=== PATIENT | female | born 1945 | race Caucasian/White ===

== ENCOUNTER 2016-09-15 06:15 | Inpatient (IN) | payer OTHER ==
[~2016-09-15] VITALS: Ht 160 cm; Wt 99.8 kg
[~2016-09-15 06:15] MED LIST: CARV12.548 PO; FURO-149 PO; INSU100V32 SUBCUT; ISOS20TA8 PO; NORT25CA30 PO; POTA-118 PO; SIMV40TA2 PO; [UNRECOGNIZED DRUG - CODE]
[2016-09-15] MEDS ORDERED: LOSA50TA3 PO (07:49)
[2016-09-15] MEDS ORDERED: INSU100V32 SUBCUT (07:49)
[2016-09-15] MEDS ORDERED: NPH,100V SUBCUT (07:49)
[2016-09-15] MEDS ORDERED: METOPROLOL TARTRATE 5 MG/5 ML VIAL IVP ONE (08:01)
[2016-09-15] MEDS ORDERED: VANCOMYCIN HCL 1000 MG/VIAL IV ONE (08:01)
[2016-09-15] MEDS ORDERED: NS 100 ML BAG IV ONE (08:01)
[2016-09-15] MEDS ORDERED: LIDOCAINE 2%, 20 ML MDV INJ ONE (08:01)
[2016-09-15] MEDS ORDERED: ROPIVACAINE HCL/PF 5 MG/ML 0.5% 30 ML VIAL INJ ONE ×2 (08:01)
[2016-09-15] MEDS ORDERED: NORMAL SALINE 10 ML VIAL IVP ONE (08:01)
[2016-09-15] MEDS ORDERED: fentaNYL CITRATE 250 MCG/5 ML AMP IV ONE (08:01)
[2016-09-15] MEDS ORDERED: TRANEXAMIC ACID 1,000 MG/10 ML VIAL IV ONE (08:01)
[2016-09-15] MEDS ORDERED: SEVOFLURANE 15 MIN GAS INH ONE (08:01)
[2016-09-15] MEDS ORDERED: MIDAZOLAM HCL 5 MG/5 ML VIAL IVP ONE (08:01)
[2016-09-15] MEDS ORDERED: KETOROLAC TROMETHAMINE 30 MG VIAL IVP ONE (08:01)
[2016-09-15] MEDS ORDERED: PROPOFOL 200MG/ 20ML VIAL (DIPRIVAN) IV ONE (08:01)
[2016-09-15] MEDS ORDERED: ONDANSETRON HCL 4 MG/2 ML VIAL IVP ONE (08:01)
[2016-09-15] MEDS ORDERED: LR 1,000 ML IV.SOLN IV ONE (08:01)
[2016-09-15] MEDS ORDERED: CEFAZOLIN 2 GM IVPB PREMIX 50 ML IV ONE (08:01)
[2016-09-15] MEDS ORDERED: D5/0.45 NS 1,000 ML IV ONE (08:19)
[2016-09-15] MEDS ORDERED: BISACODYL 10 MG/SUPPOSITORY RC PRN (08:30)
[2016-09-15] MEDS ORDERED: ACETAMINOPHEN 325 MG TABLET PO PRN (08:30)
[2016-09-15] MEDS ORDERED: POLYMYXIN 500,000/BACIT.10,000 UNITS in NS IRR 1 L IR ONE (08:34)
[2016-09-15] MEDS ORDERED: LR 1,000 ML IV SCH (08:39)
[2016-09-15] MEDS ORDERED: HYDROmorphone 2 MG/ML VIAL IVP PRN ×2 (08:45)
[2016-09-15] MEDS ORDERED: NALBUPHINE HCL 10 MG/ML AMP IVP PRN (08:45)
[2016-09-15] MEDS ORDERED: DIPHENHYDRAMINE INJ 50 MG/ML VIAL IVP PRN (08:45)
[2016-09-15] MEDS ORDERED: ONDANSETRON HCL 4 MG/2 ML VIAL IVP PRN ×2 (08:45)
[2016-09-15] MEDS ORDERED: MEPERIDINE HCL/PF 25 MG/ML DISP.SYRIN IVP PRN ×2 (08:45)
[2016-09-15] MEDS ORDERED: HYDROmorphone 1 MG INJ. 1 MG/ML AMPUL IVP PRN ×2 (08:45)
[2016-09-15] MEDS ORDERED: ROPIVACAINE 0.2% 100 ML ONE (10:45)
[2016-09-15] MEDS: HYDROmorphone 1 MG INJ. 1 MG/ML AMPUL ONE ×2 (11:05→11:27)
[2016-09-15] MEDS ORDERED: HYDROmorphone 1 MG INJ. 1 MG/ML AMPUL ONE (11:31)
[2016-09-15 12:00] VITALS: BP_SYST 138
[2016-09-15 12:55] VITALS: BP_SYST 122
[2016-09-15] MEDS: RIVAROXABAN 10 MG TABLET PO SCH (15:51)
[2016-09-15] MEDS: MORPHINE SULFATE 10 MG/ML VIAL IM PRN ×2 (16:03→20:52)
[2016-09-15] MEDS: CEFAZOLIN 1 GM IVPB PREMIX 50 ML IV SCH ×2 (16:04→23:04)
[2016-09-15] MEDS ORDERED: DORZ10DR8 OP (16:09)
[2016-09-15] MEDS ORDERED: LATA2.5D6 OP (16:09)
[2016-09-15] MEDS ORDERED: BRI.2% OP (16:09)
[2016-09-15 16:15] VITALS: BP_SYST 124
[2016-09-15] MEDS ORDERED: INSULIN REGULAR, HUMAN 100 UNITS/ML, 10 ML VIAL (novoLIN R) SUBCUT PRN (16:15)
[2016-09-15 17:41] VITALS: BP_SYST 124
[2016-09-15] MEDS ORDERED: DEXTROSE 50% JECT 50 ML DISP.SYRIN IVP PRN (17:45)
[2016-09-15 20:00] VITALS: BP_SYST 121
[2016-09-15] MEDS: DORZOLAMIDE 2% OPHTHALMIC SOLN 5ML OP SCH (21:00)
[2016-09-15] MEDS: BRIMONIDINE TARTRATE 0.2% 5 mL EYE DROPS BOTH EYES SCH (21:00)
[2016-09-15] MEDS: LATANOPROST 2.5 ML DROPS (XALATAN) OP SCH (21:00)
[2016-09-15] MEDS: NORTRIPTYLINE HCL 25 MG CAPSULE PO SCH (21:00)
[2016-09-15] MEDS: SIMVASTATIN 40 MG TABLET PO SCH (21:23)
[2016-09-15] MEDS: ISOSORBIDE DINITRATE 20 MG TABLET (ISORDIL) PO SCH (21:23)
[2016-09-15] MEDS: CARVEDILOL 12.5 MG TABLET (COREG) PO SCH (21:24)
[2016-09-15] MEDS: INSULIN REGULAR, HUMAN 100 UNITS/ML, 10 ML VIAL (novoLIN R) SUBCUT PRN (21:43)
[2016-09-15] MEDS: ROPIVACAINE 0.2% 100 ML INJ SCH (22:59)
[2016-09-16] VITALS: BP_SYST 139
[2016-09-16] MEDS: MORPHINE SULFATE 10 MG/ML VIAL IM PRN ×2 (02:48→18:07)
[2016-09-16 04:00] VITALS: BP_SYST 128
[2016-09-16] MEDS: HYDROcodone/ACETAMIN 7.5-325 MG TAB PO PRN ×4 (06:05→23:11)
[2016-09-16] MEDS: INSULIN REGULAR, HUMAN 100 UNITS/ML, 10 ML VIAL (novoLIN R) SUBCUT PRN ×4 (06:53→21:25)
[2016-09-16] MEDS: ISOSORBIDE DINITRATE 20 MG TABLET (ISORDIL) PO SCH ×3 (06:54→21:24)
[2016-09-16 07:08] LABS: BASOPHILS % (AUTO) 0.2 % (0.0-2.0); HEMATOCRIT 33.8 % (36-48); HEMOGLOBIN 11.5 g/dL (12.0-16.0); LYMPHOCYTES # (AUTO) 2.1 K/uL (1.0-5.5); LYMPHOCYTES % (AUTO) 12.9 % (20.5-51.5); MEAN CORPUSCULAR HEMOGLOBIN 30 pg (27-31); MEAN CORPUSCULAR HGB CONC 34 % (32-36); MEAN CORPUSCULAR VOLUME 89 fL (79.0-98.0); MONOCYTES # (AUTO) 2.1 K/uL (0.0-1.0); MONOCYTES % (AUTO) 12.9 % (1.7-9.3); NEUTROPHILS # (AUTO) 12.3 K/uL (1.8-7.7); PLATELET COUNT (AUTO) 280 K/uL (130-430); RED BLOOD CELL COUNT(AUTO) 3.79 MIL/uL (4.2-6.2); RED CELL DISTRIBUTION WIDTH 12.8 % (9.0-15.0); WHITE BLOOD COUNT (AUTO) 16.5 K/uL (4.8-10.8)
[2016-09-16 07:20] LABS: ALBUMIN 2.9 g/dL (3.4-4.8); CALCIUM 8.3 mg/dL (8.4-11.0); CREATININE 0.86 mg/dL (0.55-1.30); POTASSIUM 4.1 mmol/L (3.5-5.1); TOTAL BILIRUBIN 0.5 mg/dL (0.0-1.0); TOTAL PROTEIN, SERUM 6.4 g/dL (6.4-8.3)
[2016-09-16 07:42] LABS: HEPATITIS B CORE AB, TOTAL Negative (Negative); HEPATITIS B SURFACE AG Negative (Negative); HEPATITIS C VIRUS AB <0.1 s/co ratio (0.0-0.9)
[2016-09-16 08:00] VITALS: BP_SYST 98
[2016-09-16] MEDS: LOSARTAN POTASSIUM 50 MG TABLET (COZAAR) PO SCH (09:00)
[2016-09-16] MEDS: BRIMONIDINE TARTRATE 0.2% 5 mL EYE DROPS BOTH EYES SCH ×3 (09:37→20:15)
[2016-09-16] MEDS: RIVAROXABAN 10 MG TABLET PO SCH (09:40)
[2016-09-16] MEDS: DORZOLAMIDE 2% OPHTHALMIC SOLN 5ML OP SCH ×3 (09:40→20:15)
[2016-09-16] MEDS: FUROSEMIDE 40 MG TABLET PO SCH (09:42)
[2016-09-16] MEDS: POTASSIUM CHLORIDE 10 MEQ TAB.PRT.SR PO SCH (09:43)
[2016-09-16] MEDS: CARVEDILOL 12.5 MG TABLET (COREG) PO SCH ×2 (09:43→20:14)
[2016-09-16] MEDS: NORTRIPTYLINE HCL 25 MG CAPSULE PO SCH ×3 (09:44→21:00)
[2016-09-16] MEDS: ROPIVACAINE 0.2% 100 ML INJ SCH ×2 (11:22→23:11)
[2016-09-16 12:05] VITALS: BP_SYST 111
[2016-09-16 16:34] VITALS: BP_SYST 150
[2016-09-16 20:00] VITALS: BP_SYST 161
[2016-09-16] MEDS: SIMVASTATIN 40 MG TABLET PO SCH (20:14)
[2016-09-16] MEDS: LATANOPROST 2.5 ML DROPS (XALATAN) OP SCH (20:15)
[2016-09-17 00:43] VITALS: BP_SYST 117
[2016-09-17] MEDS: MORPHINE SULFATE 10 MG/ML VIAL IM PRN ×3 (01:51→17:28)
[2016-09-17 03:23] VITALS: BP_SYST 126
[2016-09-17] MEDS: ISOSORBIDE DINITRATE 20 MG TABLET (ISORDIL) PO SCH ×3 (06:17→21:43)
[2016-09-17] MEDS: INSULIN REGULAR, HUMAN 100 UNITS/ML, 10 ML VIAL (novoLIN R) SUBCUT PRN ×4 (06:20→21:46)
[2016-09-17 08:01] VITALS: BP_SYST 128
[2016-09-17] MEDS: DORZOLAMIDE 2% OPHTHALMIC SOLN 5ML OP SCH ×3 (09:00→21:00)
[2016-09-17] MEDS: BRIMONIDINE TARTRATE 0.2% 5 mL EYE DROPS BOTH EYES SCH ×3 (09:00→21:00)
[2016-09-17] MEDS: RIVAROXABAN 10 MG TABLET PO SCH (09:24)
[2016-09-17] MEDS: CARVEDILOL 12.5 MG TABLET (COREG) PO SCH ×2 (09:24→21:36)
[2016-09-17] MEDS: POTASSIUM CHLORIDE 10 MEQ TAB.PRT.SR PO SCH (09:25)
[2016-09-17] MEDS: FUROSEMIDE 40 MG TABLET PO SCH (09:25)
[2016-09-17] MEDS: LOSARTAN POTASSIUM 50 MG TABLET (COZAAR) PO SCH (09:25)
[2016-09-17] MEDS: NORTRIPTYLINE HCL 25 MG CAPSULE PO SCH ×2 (09:26→21:00)
[2016-09-17] MEDS: HYDROcodone/ACETAMIN 7.5-325 MG TAB PO PRN (09:27)
[2016-09-17 10:26] LABS: BASOPHILS # (AUTO) 0.1 K/uL (0.0-0.2); BASOPHILS % (AUTO) 0.7 % (0.0-2.0); EOSINOPHILS # (AUTO) 0.4 K/uL (0.0-0.4); EOSINOPHILS % (AUTO) 3.3 % (0.0-4.0); HEMATOCRIT 30.5 % (36-48); HEMOGLOBIN 10.1 g/dL (12.0-16.0); LYMPHOCYTES # (AUTO) 1.4 K/uL (1.0-5.5); LYMPHOCYTES % (AUTO) 10.7 % (20.5-51.5); MEAN CORPUSCULAR HEMOGLOBIN 30 pg (27-31); MEAN CORPUSCULAR HGB CONC 33 % (32-36); MEAN CORPUSCULAR VOLUME 90 fL (79.0-98.0); MONOCYTES # (AUTO) 2.1 K/uL (0.0-1.0); MONOCYTES % (AUTO) 15.9 % (1.7-9.3); NEUTROPHILS # (AUTO) 9.4 K/uL (1.8-7.7); NEUTROPHILS % (AUTO) 69.4 % (40.0-70.0); PLATELET COUNT (AUTO) 234 K/uL (130-430); RED CELL DISTRIBUTION WIDTH 12.5 % (9.0-15.0); WHITE BLOOD COUNT (AUTO) 13.4 K/uL (4.8-10.8)
[2016-09-17 12:05] VITALS: BP_SYST 139
[2016-09-17] MEDS: ROPIVACAINE 0.2% 100 ML INJ SCH (14:05)
[2016-09-17 16:54] VITALS: BP_SYST 174
[2016-09-17 20:45] VITALS: BP_SYST 137
[2016-09-17] MEDS: LATANOPROST 2.5 ML DROPS (XALATAN) OP SCH (21:00)
[2016-09-17] MEDS: SIMVASTATIN 40 MG TABLET PO SCH (21:35)
[2016-09-18] VITALS (7 sets, daily range): BP systolic 100–137
[2016-09-18] MEDS: ROPIVACAINE 0.2% 100 ML INJ SCH
[2016-09-18] MEDS: MORPHINE SULFATE 10 MG/ML VIAL IM PRN ×3 (04:41→17:10)
[2016-09-18] MEDS: ISOSORBIDE DINITRATE 20 MG TABLET (ISORDIL) PO SCH ×2 (06:21→13:59)
[2016-09-18] MEDS: INSULIN REGULAR, HUMAN 100 UNITS/ML, 10 ML VIAL (novoLIN R) SUBCUT PRN ×3 (06:25→18:27)
[2016-09-18] MEDS: BRIMONIDINE TARTRATE 0.2% 5 mL EYE DROPS BOTH EYES SCH ×2 (09:00→15:00)
[2016-09-18] MEDS: DORZOLAMIDE 2% OPHTHALMIC SOLN 5ML OP SCH ×2 (09:00→15:00)
[2016-09-18] MEDS: LOSARTAN POTASSIUM 50 MG TABLET (COZAAR) PO SCH (09:50)
[2016-09-18] MEDS: CARVEDILOL 12.5 MG TABLET (COREG) PO SCH (09:50)
[2016-09-18] MEDS: POTASSIUM CHLORIDE 10 MEQ TAB.PRT.SR PO SCH (09:50)
[2016-09-18] MEDS: RIVAROXABAN 10 MG TABLET PO SCH (09:50)
[2016-09-18] MEDS: FUROSEMIDE 40 MG TABLET PO SCH (09:51)
[2016-09-18] MEDS: HYDROcodone/ACETAMIN 7.5-325 MG TAB PO PRN (13:47)
== END 2016-09-18 18:17 | DRG 470 ==
LOC: SMU 06:15 → STU 20:54
PROVIDERS: ADMIT Orthopaedic Surgery; ATTEND Orthopaedic Surgery
PROC: 0SRD0J9 Replacement of Left Knee Joint with Synthetic Substitute, Cemented, Open Approach (ICD-10-PCS; principal; 2016-09-15 08:30)
DX: M17.12 Unilateral primary osteoarthritis, left knee (principal); E11.9 Type 2 diabetes mellitus without complications; F17.200 Nicotine dependence, unspecified, uncomplicated; Z96.651 Presence of right artificial knee joint; Z79.899 Other long term (current) drug therapy; I25.2 Old myocardial infarction; Z95.5 Presence of coronary angioplasty implant and graft
CPT/HCPCS: 36415; 80053; 82962; 85025; 86704; 86706; 86803; 87081; 87340; 87536; 88305; 88311; 97110-GP; 97116-GP; 97530-GP; C1713; C1776; J0690; J1170; J1815; J1885; J2001; J2250; J2270; J2405; J2704; J2795; J3010; J3370; J3490; J7120